=== PATIENT | male | born 1950 | race Caucasian/White ===

== ENCOUNTER 2016-04-21 07:41 | Emergency (ER) | payer MEDICARE, OTHER ==
[2016-04-21] MEDS ORDERED: METHYLPRED SOD SUCC 125 MG/2 ML VIAL ONE (10:05)
[2016-04-21] MEDS ORDERED: DUONEB INH ONE (10:07)
== END 2016-04-21 11:31 | disposition home or self-care (01) ==
LOC: ER 07:41
CPT/HCPCS: 71010 ×2; 93005 ×2; 94640 ×2; 96374 ×2; 99284; J2930